=== PATIENT | male | born 1960 | race Caucasian/White ===

== ENCOUNTER 2019-10-30 15:49 | Emergency (ER) | payer BC, SELFPAY ==
[2019-10-30 15:50] VITALS: BP 177/95; PULSE 60; RESP 16; TEMP 36.5; O2SAT 98; BMI 27.0
--- NOTE | 2019-10-30 15:55 | XR_ITS ---
PROCEDURE: XR KNEE RT 3V Patient Age:59Y CLINICAL INDICATION: fall. Fall 10 ft from semi trailer truck Knee pain reported most pronounced anteriorly. A COMPARISON: No exams were available for comparison FINDINGS: No joint effusion. No no discrete acute fracture at the knee. No dislocation. Patellofemoral relationships unremarkable on the lateral view. The only scant narrowing of the lateral compartment on this nonweightbearing study may reflect some early degenerative changes with slight sharpening joint margins also reflect trace degenerative change Given the medial ankle fracture I would specifically note the the proximal shaft and neck of fibula are intact. On close inspection there suggestion of a subtle double line along superior margin head of the proximal fibula. Most likely this is merely contour line but warrants correlation, and if significant focal pain at the proximal fibula and fibular-tibial articulation, here at the posterior lateral aspect of knee then follow-up this feature may be order. Again most likely this is a merely normal contour line. On the lateral view also note small 4 mm calcification along posterior aspect the joint located posterior to the tibial spines. Most likely likely dystrophic calcification but could not exclude tiny loose body. IMPRESSION: 1.No joint effusion. No discrete acute fracture. 2.Contour line most likely accounts for appearance along superior margin head of fibula. Note comments in text 3.Mild degenerative changes knee. Slight sharpening margins of joint with borderline narrowing of lateral compartment on this nonweightbearing study of the right knee 4. Small 4.5 mm osseous density projected over the posterior margin of the joint. Most likely dystrophic calcification , less likely small loose body. 5 suggestion of mild soft tissue along anterior aspect of the knee, overlying the patella and patellar tendon Dictated by: Ashutosh Islas MD 10/30/2019 17:07 Electronically signed by Ashutosh Islas MD in [place] 10/30/2019 17:07
--- NOTE | 2019-10-30 15:55 | XR_ITS ---
PROCEDURE: XR ANKLE RT MIN 3V Patient Age:59Y CLINICAL INDICATION: fall fell 10 ft from a semi truck. Swelling Right ankle pain COMPARISON: XR KNEE RT 3V from 10/30/2019 FINDINGS: Transverse fracture near base of the medial malleolus. Minimal a just over 2 mm lateral displacement of the tip of the medial malleolus is evident on the oblique view. With this the tip of the medial malleolus accompanies the talus slightly lateral however I cannot identify definitive fracture of the lateral malleolus/distal fibula. On the lateral view there is slight undulation in the contour of the cortex the distal fibula which I favor is merely residual of old growth plate question but conceivably could reflect could reflect a very subtle nondisplaced fracture/cortical buckle type bone injury.. Will require follow-up. Also note that there is no associated fracture at the proximal fibula on the knee image However also on lateral view of there is clearly a acute vertical fracture line passing through the posterior aspect of the posterior malleolus. The Merely 1.5 mm distraction fracture line at posterior malleolar fracture as well as the transverse fracture at the medial malleolus . The dome of the talus appears intact Prominent soft tissue swelling is seen at the medial and posterior malleolus but.. Mild soft tissue swelling overlying. Calcaneus intact lateral malleolus IMPRESSION: 1..Transverse fracture through the base of the medial malleolus, with minor lateral offset fractured tip of medial malleolus. 2..Vertical fracture through the the posterior margin of posterior malleolus 3 lateral malleolus --no definitive fracture at distal or proximal fibula. (Only would note subtle undulation of cortex posteriorly aspect distal fibula metaphysis on lateral view.-most likely normal contour line from old closed growth plate, but cannot totally to exclude a cortical buckle/ or occult fracture.) 4. Prominent soft tissue swelling about the ankle most pronounced overlying the lateral and posterior malleolus. Dictated by: Ashutosh Islas MD 10/30/2019 16:55 Electronically signed by Ashutosh Islas MD in [place] 10/30/2019 16:55
--- NOTE | 2019-10-30 16:12 | HMH.EDGENADL ---
ED Disposition Clinical Impression: Medial malleolar fracture Qualifiers: Encounter type: initial encounter Fracture type: closed Fracture alignment: nondisplaced Laterality: right Qualified Code(s): S82.54XA - Nondisplaced fracture of medial malleolus of right tibia, initial encounter for closed fracture Fall Qualifiers: Encounter type: initial encounter Qualified Code(s): W19.XXXA - Unspecified fall, initial encounter Knee abrasion Qualifiers: Encounter type: initial encounter Laterality: right Qualified Code(s): S80.211A - Abrasion, right knee, initial encounter Disposition: Home, Self-Care Condition on Discharge: Good Instructions: DI for Ankle Fracture Prescriptions: Hydrocodone/Acetaminophen [Confluence 5-325 Tablet] 1 each PO Q4-6H PRN #9 tab PRN Reason: pain Prescription Printed Referrals: Corinna Mahajan MD [Physician] - 3 days - Critical Care Critical Care Time: No Attestation: On 10/30/19, the high probability of a clinically significant, sudden or life threatening deterioration of the following system(s) required my full and direct attention, intervention and personal management. The time I documented below is in addition to time spent performing reported procedures but includes the following listed in this critical care notation. Medical Decision Making - Medical Records Medical records reviewed: Yes: I reviewed the patient's medical records. - Kevin Inquiry Pt receiving controlled substance: Yes Kevin was queried for this patient: No (Just below the knee his knee should remain.) Risks and benefits of using a controlled substance: were discussed with pt by me Vital Signs: 10/30/19 15:50 Temperature 97.7 F Temperature Source Oral Pulse Rate [Left Radial] 60 Respiratory Rate 16 Blood Pressure [Right Arm] 177/95 H Blood Pressure Mean [Right Arm] 122 Blood Pressure Position [Right Arm] Sitting 02 Sat by Pulse Oximetry 98 Oxygen Delivery Method Room Air Orders (Tests/Meds): ORDERS Category Date Time Status Ankle XR -Right minimum 3 Views [XR ankle RT min 3V] Exams 10/30/19 15:55 Ordered Stat Knee XR right 3 views [XR knee RT 3V] Stat Exams 10/30/19 15:55 Ordered - Radiology Data #1 Image(s): Knee, Ankle Image Reviewed: Yes I reviewed the patient's radiology image Medial malleolus fracture, no fracture of the knee Medical Decision Narrative: Patient denies any pain except around the medial malleolus. He does have a fracture here. No fracture at the knee. Knee abrasion was cleaned and bandaged. Stirrup splint was placed and patient advised to be nonweightbearing until follow-up with orthopedic surgery. Discharged home. General Adult HPI - General Chief complaint: PAIN Stated complaint: pain Time Seen by Provider: 10/30/19 16:12 Mode of Arrival: EMS Source of Information: Patient, Spouse Limitations: No Limitations Description of Symptoms (Recalled from ER Triage Doc. by RN): to ed per squad with c/o fall out of semi truck injuring rt ankle and rt knee. swelling noted to knee and lateral rt ankle - History of Present Illness HPI narrative: This is a 59-year-old male who presents to the emergency department for pain along the medial aspect of the right ankle. He fell off of a dumpster just prior to arrival. He has an abrasion on his knee but states that it does not hurt. He denies hitting his head or any neck or back pain. No chest pain or abdominal pain. He only complains of pain at the medial ankle, no pain laterally. Pain is worse with movement, better with rest. - Related Data Previous Rx's Medication Instructions Recorded Hydrocodone/Acetaminophen [Confluence 1 each PO Q4-6H PRN #9 tab 10/30/19 5-325 Tablet] Allergies Allergy/AdvReac Type Severity Reaction Status Date / Time No Known Allergies Allergy Verified 10/30/19 15:55 [facility] History - Hepatitis A Screen Drug use history?: No High risk sexual behaviors?: No History
--- NOTE | 2019-10-30 16:28 | PC.NURSE ---
orthoglass stirrup splint applied per ER MD order, ER MD checked splint at this time
[2019-10-30 16:52] VITALS: BP 153/77; PULSE 78; RESP 16; TEMP 36.6; O2SAT 98
== END 2019-10-30 16:54 | disposition home or self-care (01) ==
PROVIDERS: Emergency Provider Emergency Medicine
DX: S82.54XA Nondisplaced fracture of medial malleolus of right tibia, initial encounter for closed fracture (principal); S80.211A Abrasion, right knee, initial encounter; W17.89XA Other fall from one level to another, initial encounter; Y92.89 Other specified places as the place of occurrence of the external cause
CPT/HCPCS: 29515; 73562; 73610; 99284

== ENCOUNTER → 2019-11-15 13:40 | Outpatient (CLI) | payer BC, SELFPAY ==
--- NOTE | 2019-11-15 14:21 | CT_ITS ---
PROCEDURE: CT ANKLE RT WO CON CLINICAL HISTORY: Ankle Fracture COMPARISON: No exams were available for comparison TECHNIQUE: Axial images obtained with sagittal and coronal reformats. All CT scans at the facility use one or more dose reduction, viz: automated exposure control, ma/kV adjustment per patient size (including targeted exams where dose is matched to indication, i.e. head), or iterative reconstruction technique. FINDINGS: The extremity is casted. Joint effusion and soft tissue edema is noted. There are multiple small avulsion chip fractures involving the tip of the fibula. There is an inferiorly displaced avulsion chip fracture involving the posterior inferior malleolus. There is a transverse fracture of the base of the medial malleolus. Ankle mortise is intact. IMPRESSION: Trimalleolar fractures as described above Dictated by: Jose Light 11/15/2019 17:54 Electronically signed by Jose Light in [place] 11/15/2019 17:54
== END ==
PROVIDERS: Visit Provider Podiatrist
DX: S82.391A Other fracture of lower end of right tibia, initial encounter for closed fracture (principal); S82.53XA Displaced fracture of medial malleolus of unspecified tibia, initial encounter for closed fracture; S82.891A Other fracture of right lower leg, initial encounter for closed fracture
CPT/HCPCS: 73700

== ENCOUNTER → 2019-12-07 09:38 | Outpatient (CLI) | payer BC, SELFPAY ==
--- NOTE | 2019-12-07 09:39 | XR_ITS ---
PROCEDURE: XR ANKLE WT BEARING RT MIN 3V CLINICAL INDICATION: fracture follow up Pain COMPARISON: XR ANKLE RT MIN 3V from 10/30/2019 FINDINGS: There is a nondisplaced transverse fracture involving the base the medial malleolus. Fracture line is still visible IMPRESSION: No change nondisplaced fracture base of medial malleolus. The ankle mortise appears intact without widening Dictated by: Preston Fletcher MD 12/07/2019 15:40 Electronically signed by Preston Fletcher MD in [place] 12/07/2019 15:40
== END ==
PROVIDERS: PCP Nurse Practitioner Family; Visit Provider Podiatrist
DX: S82.851A Displaced trimalleolar fracture of right lower leg, initial encounter for closed fracture (principal); T14.8XXA Other injury of unspecified body region, initial encounter
CPT/HCPCS: 73610

== ENCOUNTER → 2020-01-17 09:45 | Outpatient (CLI) | payer BC, SELFPAY ==
--- NOTE | 2020-01-17 09:47 | XR_ITS ---
PROCEDURE: XR ANKLE WT BEARING RT MIN 3V CLINICAL INDICATION: post ankle injury Follow-up fracture COMPARISON: CR XR ANKLE RT MIN 3V from 10/30/[address] ANKLE RT WO CON from 11/15/2019 CR XR ANKLE WT BEARING RT MIN 3V from 12/07/2019 FINDINGS: There remains a nondisplaced fracture involving the base of the medial malleolus. Fracture line is still visible raising the suspicion nonunion overall not significantly changed since 10/30/2019.. Nondisplaced fracture also involves posterior aspect of the distal tibia. The ankle mortise appears intact IMPRESSION: Overall no change in the nondisplaced medial malleolar fracture and posterior distal tibial fracture. Dictated by: Preston Fletcher MD 01/17/2020 10:59 Preston Fletcher MD in [place] 01/17/2020 10:59
== END ==
PROVIDERS: Visit Provider Podiatrist
DX: T14.8XXA Other injury of unspecified body region, initial encounter (principal)
CPT/HCPCS: 73610

== ENCOUNTER 2020-03-08 11:04 | Emergency (ER) | payer BC, SELFPAY ==
[2020-03-08 11:27] VITALS: BP 190/94; PULSE 50; RESP 14; TEMP 36.8; O2SAT 98; BMI 27.0
--- NOTE | 2020-03-08 11:52 | HMH.EDUTC ---
[facility] [place] Clinical Impression: Exposure to COVID-19 virus Disposition: Home, Self-Care Condition on Discharge: Good Instructions: Preventing the Spread of Coronavirus Discharge Instructions Additional Instructions: Drink plenty of fluids. Take tylenol for pain or fever. Follow up with your regular doctor. GO TO THE ER FOR ANY WORSENING SYMPTOMS FOLLOW THE DIRECTIONS ON THE COVID-19 HAND OUT THAT WE GAVE YOU REGARDING SELF-ISOLATION UNTIL YOU KNOW YOUR COVID-19 RESULTS Referrals: Carlotta Gaspar APRN [Primary Care Provider] - Time of Disposition: 11:52 Medical Decision Making - Medical Records Medical records reviewed: No: I reviewed the patient's medical records. - Kevin Inquiry Pt receiving controlled substance: No Vital Signs: 03/08/20 11:27 03/08/20 11:58 Temperature 98.2 F 98.2 F Temperature Source Oral Oral Pulse Rate 50 L Pulse Rate [Radial] 50 L Respiratory Rate 14 14 Blood Pressure 190/94 H Blood Pressure [Right Arm] 190/94 H Blood Pressure Mean [Right Arm] 126 Blood Pressure Source Automatic Cuff Blood Pressure Source [Right Arm] Automatic Cuff Blood Pressure Position Sitting Blood Pressure Position [Right Arm] Sitting 02 Sat by Pulse Oximetry 98 Oxygen Delivery Method Room Air Room Air [facility] [place] HPI - General Stated complaint: wants covid test Time Seen by Provider: 03/08/20 11:52 Mode of Arrival: Ambulatory Source of Information: Patient Limitations: No Limitations Description of Symptoms (Recalled from Triage Doc. by RN): exposure to covid 1 week ago HEENT Symptoms (Recalled from RN notes): No Resp Symptoms (Recalled from RN notes): No Skin Symptoms (Recalled from RN notes): No MS Symptoms (Recalled from RN notes): No Functional Status (Recalled from RN notes): wnl - History of Present Illness Provider Complaint: He is here needing to be tested for covid. He denies any symptoms. He was exposed approx 1 week ago at his work. - Related Data Home Medications Medication Instructions Recorded Confirmed No Known Home Medications 11/17/19 01/17/20 Allergies Allergy/AdvReac Type Severity Reaction Status Date / Time No Known Allergies Allergy Verified 01/17/20 09:23 - Worker's Comp Is this a Worker's Comp case?: No [facility] History - Hepatitis A Screen Drug use history?: No High risk sexual behaviors?: No History of sexually transmitted infection?: No Currently employed?: No Childcare worker?: No Do you have indoor plumbing?: Yes Do you have electricity?: Yes Attestation statement:: This patient has been screened for Hepatitis A risk factors. I have reviewed the patient's past medical history: Yes Medical History: Reports:: Kidney Stones Other Medical History: Reports: Arthritis Other Surgeries: Yes: Other Amputation: No Fractures: Yes Comment: facial surgery 08/2018 - Social History Smoking Status: Never smoker Alcohol Intake: never Alcohol Intake Frequency:: other Occupational Status: other Housing: house Household Members: spouse Family Hx:: Diabetes, Hypertension ROS Obtained: Yes All systems reviewed & no additional complaints - Constitutional Constitutional: Reports system reviewed and no additional complaints, except as docu - Eyes Eyes: Reports system reviewed and no additional complaints, except as docu - ENT Ears, Nose, Mouth, and Throat: Reports system reviewed and no additional complaints, except as docu - Cardiovascular Cardiovascular: Reports system reviewed and no additional complaints, except as docu - Respiratory Respiratory: Yes system reviewed and no additional complaints, except as docu Physical Exam - General General appearance: alert, in no apparent distress - Head Head exam: atraumatic, normocephalic, normal inspection - Eye Eye exam: Present: normal appearance, PERRL, EOMI - ENT ENT exam: Present: normal exam, normal oropharynx, mucous membranes moist, TM's normal bilateral
[2020-03-08 11:58] VITALS: BP 190/94; PULSE 50; RESP 14; TEMP 36.8; O2SAT 98
== END 2020-03-08 12:00 | disposition home or self-care (01) ==
PROVIDERS: Emergency Provider Nurse Practitioner Family; PCP Nurse Practitioner Family
DX: Z20.828 Contact with and (suspected) exposure to other viral communicable diseases (principal); Z87.442 Personal history of urinary calculi
CPT/HCPCS: 99201; U0003